=== PATIENT | female | born 1990 | race Caucasian/White ===

== ENCOUNTER 2020-03-09 04:28 | Inpatient (IN) ==
[2020-03-09] MEDS ORDERED: OXYTOCIN 30 UNITS/500 ML BAG IV PRN ×2 (04:46→07:19)
[2020-03-09] MEDS ORDERED: LACTATED RINGER'S 1,000 ML IV PRN (04:46)
[2020-03-09 05:17] LABS: Hematocrit (blood only) 39.6 % (37-47); Hemoglobin 13.3 g/dL (12.0-16.0); Mean Corpuscular Hemoglobin 27.5 pg (25-34); Mean Corpuscular Volume 81.8 fL (80-100); Mean Platelet Volume 12.2 fL (7.4-10.4); Platelet Count 157 K/uL (130-400); RDW Coefficient of Variation 14.5 % (11.5-14.5); RDW Standard Deviation 43.4 fL (36.4-46.3); Red Blood Count 4.84 M/uL (4.2-5.4)
--- NOTE | 2020-03-09 05:18 | Obstetrical Progress Note ---
Date of Service March 09, 2020 Subjective Admit Note 30 F P1021 at 38.4 weeks with SROM clear fluid. GBS is negative. Covid is negative. FHT CAt 1. Contractions painful and requesting epidural. Will admit and call for epidural. Results & Data ([facility]) Vital Signs (Past 12 Hours) Vital Signs Temp Pulse Resp BP 03/09/20 04:50 36.7 C 18 03/09/20 04:35 71 137/77
[2020-03-09] MEDS ORDERED: fentaNYL citrate 100 MCG/2 ML VIAL ONE (05:24)
[2020-03-09] MEDS ORDERED: BUPIVACAINE 0.25% 30 ML VIAL ONE (05:24)
[2020-03-09] MEDS ORDERED: ePHEDrine sulfate 50 MG/ML AMP ONE (05:24)
[2020-03-09] MEDS ORDERED: fentaNYL 2MCG/ML ROPIVACAINE 1.25MG/ML 100 ML BAG EPI ONE (05:25)
[2020-03-09 05:34] LABS: Mean Corpuscular Hgb Conc 33.6 g/dL (32-36)
--- NOTE | 2020-03-09 05:40 | Obstetrical Progress Note ---
Date of Service March 09, 2020 Physical Exam Genitourinary: Manual OB Exam: + cervical dilation 7 cm, + cervical effacement 100%, + station 0 and + amniotic fluid OB Exam Monitor Tracing: + external FHT monitor used, + external uterine monitor used, + category I and + normal FHT variability Results & Data ([facility]) Vital Signs (Past 12 Hours) Vital Signs Temp Pulse Resp BP 03/09/20 04:50 36.7 C 18 03/09/20 04:35 71 137/77
[2020-03-09] MEDS ORDERED: BUTORPHANOL TARTRATE 1 MG/ML VIAL ONE (06:02)
[2020-03-09] MEDS ORDERED: BUTORPHANOL TARTRATE 1 MG/ML VIAL IV STA (06:12)
--- NOTE | 2020-03-09 06:14 | Delivery Summary ---
Vaginal Delivery Summary Date of Service March 09, 2020 Vaginal Delivery Summary Delivery Note live male STEPHANE over intact perineum with delayed cord clamping and Apgars 8/9 weight pending. Cord blood obtained followed by spontaneous delivery of intact placenta, No tears. EBL 200 ml. Final sponge and instrument count are correct. Mom and baby stable.
[2020-03-09] MEDS ORDERED: SUPERCREAM 0.870% 15 GM JAR EXT PRN (07:19)
[2020-03-09] MEDS ORDERED: LACTATED RINGER'S 1,000 ML IV SCH (07:19)
[2020-03-09] MEDS ORDERED: ACETAMINOPHEN 325 MG TAB PO PRN (07:19)
[2020-03-09] MEDS ORDERED: HYDROCORTISONE ACETATE 25 MG SUPP PR PRN (07:19)
[2020-03-09] MEDS ORDERED: bisacodyL 10 MG SUPP PR PRN (07:19)
[2020-03-09] MEDS ORDERED: BENZOCAINE 20% AER SPR 82.5 GM CAN EXT PRN (07:19)
[2020-03-09] MEDS ORDERED: DIPHTHERIA/TETANUS/PERTUSSIS 0.5 ML SYR/VIAL IM ONE (07:19)
[2020-03-09] MEDS: DOCUSATE SODIUM 100 MG CAP PO SCH ×2 (07:47→20:05)
[2020-03-09] MEDS: PRENATAL VITAMIN 1 TAB PO SCH (07:47)
[2020-03-09] MEDS: FERROUS SULFATE 325 MG TAB PO SCH (07:47)
[2020-03-09] MEDS: IBUPROFEN 600 MG TAB PO PRN ×3 (07:47→20:05)
[2020-03-09] MEDS ORDERED: NON-FORMULARY MEDICATION (Prenat.Vits,Cal,Min-Iron-Folic 1 TAB) PO SCH (09:00)
[2020-03-10 06:37] LABS: Hematocrit (blood only) 35.5 % (37-47); Hemoglobin 11.6 g/dL (12.0-16.0); Mean Corpuscular Hemoglobin 27.3 pg (25-34); Mean Corpuscular Hgb Conc 32.7 g/dL (32-36); Mean Corpuscular Volume 83.5 fL (80-100); Mean Platelet Volume 12.3 fL (7.4-10.4); Platelet Count 149 K/uL (130-400); RDW Coefficient of Variation 14.8 % (11.5-14.5); RDW Standard Deviation 45.5 fL (36.4-46.3); Red Blood Count 4.25 M/uL (4.2-5.4); White Blood Count 10.11 K/uL (4.8-10.8)
[2020-03-10] MEDS: FERROUS SULFATE 325 MG TAB PO SCH (08:20)
[2020-03-10] MEDS: PRENATAL VITAMIN 1 TAB PO SCH (08:20)
[2020-03-10] MEDS: IBUPROFEN 600 MG TAB PO PRN (08:20)
[2020-03-10] MEDS: DOCUSATE SODIUM 100 MG CAP PO SCH (08:20)
--- NOTE | 2020-03-10 09:02 | Obstetrical Progress Note ---
Date of Service March 10, 2020 Assessment & Plan (1) Normal course: PPD #1 pt doing well pt wishes to be disch home Subjective Ambulation: ambulating normally Voiding: no voiding problems Passing Gas:: Yes Diet Tolerance:: regular diet Lochia:: Small Feeding Type:: breast feeding Review of Systems All systems reviewed & are unremarkable except as noted in HPI & below Physical Exam Constitutional WD/WN, vitals as above well developed and well nourished Eyes PERRL, conjunctivae normal, anicteric sclerae Neck trachea midline, no thyromegaly Respiratory normal respiratory effort, lungs clear to auscultation Auscultation: no crackles, no rales and no wheezes Cardiovascular RRR, no murmur, no edema Gastrointestinal (Abdomen) normal bowel sounds, soft, nontender, no hepatosplenomegaly Uterus is below umbilicus Musculoskeletal no cyanosis or clubbing, extremities motor strength 5/5 Skin no rashes, warm and dry Neurologic patellar DTR's 2+ bilat, sensation intact Psychiatric A+Ox3, euthymic affect Genitourinary normal external appearance Results & Data ([facility]) Vital Signs (Past 12 Hours) Vital Signs Temp Pulse Resp BP Pulse Ox 03/10/20 03:55 36.5 C 76 16 123/80 97 03/09/20 23:20 36.6 C 78 16 110/73 98
[2020-03-10] MEDS ORDERED: bisacodyL 5 MG TABEC PO SCH (20:00)
== END 2020-03-10 13:59 | disposition home or self-care (01) | DRG 807 ==
LOC: OPB 04:28 → 4S1 04:29 → 4S2 11:46